=== PATIENT | male | born 1985 ===

== ENCOUNTER 2016-05-27 12:20 | Inpatient (IN) | payer OTHER ==
[~2016-05-27] VITALS: Ht 172.7 cm; Wt 87.9 kg
[2016-05-27] MEDS ORDERED: MOM 30ML SUSPENSION UDC PO PRN (13:00)
[2016-05-27] MEDS ORDERED: METHOCARBAMOL 750 MG TAB PO PRN (13:00)
[2016-05-27] MEDS ORDERED: MIRALAX *UNIT DOSE* 17GM PACKET PO PRN (13:00)
[2016-05-27] MEDS ORDERED: ACETAMINOPHEN TAB 650MG DOSE (2X325MG) PO PRN (13:00)
[2016-05-27] MEDS ORDERED: GLUCAGON FOR INJ 1 MG VIAL (J1610) SC PRN (13:15)
[2016-05-27] MEDS ORDERED: DEXTROSE 50% 50 ML SYRINGE IV PRN (13:15)
[2016-05-27] MEDS ORDERED: GLUCOSE 4 GM CHEW TABLET PO PRN (13:15)
[2016-05-27 18:30] VITALS: BP 152/92
[2016-05-27] MEDS ORDERED: CEFT1INJ3 INJ (19:17)
[2016-05-27] MEDS ORDERED: LOVE1INJ2 SC (19:22)
[2016-05-27] MEDS ORDERED: INSUH10VL SC (19:22)
[2016-05-27] MEDS ORDERED: GABA300C3 PO (19:22)
[2016-05-27] MEDS ORDERED: VITA100066 PO (19:22)
[2016-05-27] MEDS ORDERED: COLA100C PO (19:22)
[2016-05-27] MEDS ORDERED: KEPP1000 PO (19:33)
[2016-05-27] MEDS ORDERED: OXYC10TA12 PO (19:33)
[2016-05-27] MEDS ORDERED: SENN1TAB4 PO (19:33)
[2016-05-27] MEDS ORDERED: METO10TA2 PO (19:33)
[2016-05-27] MEDS ORDERED: MELA3TAB PO (19:33)
[2016-05-27] MEDS ORDERED: ROBA750T4 PO (19:33)
[2016-05-27] MEDS ORDERED: TYLE500T78 PO (19:33)
[2016-05-27] MEDS ORDERED: MIRA33504 PO (19:33)
[2016-05-27] MEDS ORDERED: OXYC-517 PO (19:33)
[2016-05-27] MEDS ORDERED: VITMTA PO (19:33)
[2016-05-27] MEDS ORDERED: TRAM50TA2 PO (19:33)
[2016-05-27] MEDS ORDERED: PANT40TA2 PO (19:33)
[2016-05-27] MEDS ORDERED: METF500T PO (19:33)
[2016-05-27 20:00] VITALS: BP 152/92
[2016-05-27] MEDS: metFORMIN (GLUCOPHAGE) 500 MG TAB PO SCH (20:03)
[2016-05-27] MEDS: PERCOCET 5MG/325MG TAB PO PRN (20:03)
[2016-05-27] MEDS: DOCUSATE SODIUM 100 MG CAP PO SCH (21:00)
[2016-05-27] MEDS: SENNA 8.6 MG TAB (SENOKOT) PO SCH (21:00)
[2016-05-27] MEDS: HumaLOG INSULIN (NovoLOG) PER UNIT SC SCH (21:00)
[2016-05-27] MEDS: ENOXAPARIN 30 MG/0.3 ML SYR (J1650) SC SCH (22:11)
[2016-05-27] MEDS: VITAMIN D 1,000 INTERNATIONAL UNITS TABLET PO SCH (22:13)
[2016-05-27] MEDS: GABAPENTIN 300 MG CAP PO SCH (22:13)
[2016-05-27] MEDS: levETIRAcetam 250MG TABLET (KEPPRA) PO SCH (22:14)
[2016-05-27] MEDS: METOCLOPRAMIDE 10 MG TAB PO SCH (22:14)
[2016-05-28] MEDS: PERCOCET 5MG/325MG TAB PO PRN ×4 (03:44→21:31)
[2016-05-28 06:00] VITALS: BP 147/86
[2016-05-28] MEDS: DOCUSATE SODIUM 100 MG CAP PO SCH ×2 (08:06→21:10)
[2016-05-28] MEDS: LACTOBACILLUS ACIDOPHILUS CAP (BACID) PO SCH ×3 (08:19→21:11)
[2016-05-28] MEDS: METOCLOPRAMIDE 10 MG TAB PO SCH ×4 (08:20→21:11)
[2016-05-28] MEDS: levETIRAcetam 250MG TABLET (KEPPRA) PO SCH ×2 (08:20→21:10)
[2016-05-28] MEDS: MULTIVITAMINS/MINERALS THERAP 1 TAB PO SCH (08:20)
[2016-05-28] MEDS: PANTOPRAZOLE 40MG TAB (PROTONIX) PO SCH (08:20)
[2016-05-28] MEDS: GABAPENTIN 300 MG CAP PO SCH ×3 (08:20→21:11)
[2016-05-28] MEDS: metFORMIN (GLUCOPHAGE) 500 MG TAB PO SCH ×2 (08:20→17:19)
[2016-05-28] MEDS: VITAMIN D 1,000 INTERNATIONAL UNITS TABLET PO SCH ×2 (08:20→21:10)
[2016-05-28] MEDS: ENOXAPARIN 30 MG/0.3 ML SYR (J1650) SC SCH ×2 (08:21→21:12)
[2016-05-28 08:26] LABS: BASO % 0.2 % (0.0-1.0); EOS # 0.1 K/mm3 (0.0-0.50); EOS % 0.6 % (0.0-3.0); LARGE UNSTAINED CELL # 0.2 K/mm3 (0.0-0.4); LARGE UNSTAINED CELL % 1.2 % (0.0-4.0); LYMPH # 1.6 K/mm3 (1.5-4.5); LYMPH % 10.4 % (24.0-44.0); MEAN CORPUSCULAR HEMOGLOBIN 29.2 pg (27.0-33.0); MEAN CORPUSCULAR HGB CONC 31.3 g/dl (32.0-36.5); MEAN CORPUSCULAR VOLUME 93.1 fl (80.0-96.0); MONO # 0.6 K/mm3 (0.0-0.8); MONO % 4.1 % (0.0-5.0); NEUTROPHILS # 12.9 K/mm3 (1.8-7.7); NEUTROPHILS % 83.5 % (36.0-66.0); PLATELET COUNT, AUTOMATED 582 k/mm3 (150-450); RED CELL DISTRIBUTION WIDTH 15.6 % (11.5-14.5); WHITE BLOOD COUNT 15.4 K/mm3 (4.0-10.0)
[2016-05-28 08:30] LABS: ANION GAP 9 MEQ/L (8-16); BLOOD UREA NITROGEN 7 MG/DL (7-18); CALCIUM LEVEL 8.7 MG/DL (8.5-10.1); CARBON DIOXIDE LEVEL 29 MEQ/L (21-32); CHLORIDE LEVEL 101 MEQ/L (98-107); CREATININE FOR GFR 0.55 MG/DL (0.70-1.30); GLOMERULAR FILTRATION RATE > 60.0 (>60); GLUCOSE, FASTING 135 MG/DL (70-105); POTASSIUM SERUM 4.1 MEQ/L (3.5-5.1); SODIUM LEVEL 139 MEQ/L (136-145)
[2016-05-28] MEDS: HumaLOG INSULIN (NovoLOG) PER UNIT SC SCH ×4 (09:07→21:00)
[2016-05-28] MEDS: cefTRIAXone SOD 2 GM in D5W MINI-BAG PLUS 50 ML IV SCH ×2 (09:07→21:09)
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
--- NOTE | 2016-05-28 13:02 | REP ---
CHEST PA AND LATERAL: 05/28/2016. Clinical history: Leukocytosis, decreased breath sounds left lung. Findings: No prior study. Two-views, a frontal and a lateral projection, show low level of inflation despite repeat PA chest. In fact, the inflation level was better with the first attempt. There is no gross effusion and with bilateral patchy basilar atelectasis or infiltrate, left more than right noted. Heart not grossly enlarged. There is no vascular redistribution or edema. The aorta is normal for age. Airway intact. Bones grossly intact. No free air. Impression: 1. Somewhat hypoinflated chest with some basilar atelectatic or infiltrative changes both lower lung zones. No gross effusion or dense consolidation with air bronchograms. 2. The heart size not enlarged and no vascular redistribution or edema. Signed by Pramod Douglas MD 05/28/2016 06:39 P
[2016-05-28 14:15] VITALS: BP 158/98
[2016-05-28] MEDS: traMADol 50 MG TAB PO PRN (14:15)
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
[2016-05-28 20:00] VITALS: BP 141/93
[2016-05-28] MEDS: SENNA 8.6 MG TAB (SENOKOT) PO SCH (21:00)
[2016-05-29] MEDS: PERCOCET 5MG/325MG TAB PO PRN ×4 (03:12→21:52)
[2016-05-29 06:00] VITALS: BP 148/100
[2016-05-29 07:37] LABS: BASO % 0.2 % (0.0-1.0); EOS # 0.1 K/mm3 (0.0-0.50); EOS % 0.4 % (0.0-3.0); LARGE UNSTAINED CELL # 0.2 K/mm3 (0.0-0.4); LARGE UNSTAINED CELL % 1.6 % (0.0-4.0); LYMPH # 2.3 K/mm3 (1.5-4.5); LYMPH % 14.6 % (24.0-44.0); MEAN CORPUSCULAR HEMOGLOBIN 29.5 pg (27.0-33.0); MEAN CORPUSCULAR HGB CONC 31.1 g/dl (32.0-36.5); MONO # 0.6 K/mm3 (0.0-0.8); MONO % 4.5 % (0.0-5.0); NEUTROPHILS # 11.1 K/mm3 (1.8-7.7); NEUTROPHILS % 78.6 % (36.0-66.0); PLATELET COUNT, AUTOMATED 606 k/mm3 (150-450); RED CELL DISTRIBUTION WIDTH 15.8 % (11.5-14.5); WHITE BLOOD COUNT 14.1 K/mm3 (4.0-10.0)
[2016-05-29 07:58] LABS: ANION GAP 9 MEQ/L (8-16); BLOOD UREA NITROGEN 7 MG/DL (7-18); CALCIUM LEVEL 8.5 MG/DL (8.5-10.1); CARBON DIOXIDE LEVEL 31 MEQ/L (21-32); CHLORIDE LEVEL 98 MEQ/L (98-107); CREATININE FOR GFR 0.68 MG/DL (0.70-1.30); GLOMERULAR FILTRATION RATE > 60.0 (>60); GLUCOSE, FASTING 161 MG/DL (70-105); POTASSIUM SERUM 3.7 MEQ/L (3.5-5.1); SODIUM LEVEL 138 MEQ/L (136-145)
[2016-05-29 08:42] LABS: ERYTHROCYTE SEDIMENTATION RATE 80 mm/hr (0-15)
[2016-05-29] MEDS: cefTRIAXone SOD 2 GM in D5W MINI-BAG PLUS 50 ML IV SCH ×2 (09:21→20:21)
[2016-05-29] MEDS: levETIRAcetam 250MG TABLET (KEPPRA) PO SCH ×2 (09:21→20:20)
[2016-05-29] MEDS: DOCUSATE SODIUM 100 MG CAP PO SCH ×2 (09:21→20:21)
[2016-05-29] MEDS: PANTOPRAZOLE 40MG TAB (PROTONIX) PO SCH (09:21)
[2016-05-29] MEDS: metFORMIN (GLUCOPHAGE) 500 MG TAB PO SCH ×2 (09:21→16:58)
[2016-05-29] MEDS: METOCLOPRAMIDE 10 MG TAB PO SCH ×4 (09:21→20:20)
[2016-05-29] MEDS: LACTOBACILLUS ACIDOPHILUS CAP (BACID) PO SCH ×3 (09:21→20:20)
[2016-05-29] MEDS: VITAMIN D 1,000 INTERNATIONAL UNITS TABLET PO SCH ×2 (09:21→21:00)
[2016-05-29] MEDS: MULTIVITAMINS/MINERALS THERAP 1 TAB PO SCH (09:21)
[2016-05-29] MEDS: ENOXAPARIN 30 MG/0.3 ML SYR (J1650) SC SCH ×2 (09:21→20:19)
[2016-05-29] MEDS: GABAPENTIN 300 MG CAP PO SCH ×3 (09:21→20:20)
[2016-05-29] MEDS: HumaLOG INSULIN (NovoLOG) PER UNIT SC SCH ×4 (09:23→21:00)
[2016-05-29] MEDS ORDERED: GASTROGRAFIN SOLUTION 30ML PO ONE (10:00)
[2016-05-29] MEDS ORDERED: GASTROGRAFIN SOLUTION 30ML (Q9963) PO ONE (10:30)
[2016-05-29] MEDS ORDERED: ISOVUE-370 76% 100ML VIAL (Q9967) As Ordered ONE (10:48)
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
[2016-05-29 14:00] VITALS: BP 142/87
[2016-05-29] MEDS: traMADol 50 MG TAB PO PRN (14:38)
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
[2016-05-29 20:00] VITALS: BP 139/90
[2016-05-29] MEDS: SENNA 8.6 MG TAB (SENOKOT) PO SCH (20:22)
[2016-05-30 06:00] VITALS: BP 138/91
[2016-05-30 07:45] LABS: BASO % 0.3 % (0.0-1.0); EOS % 0.4 % (0.0-3.0); LARGE UNSTAINED CELL # 0.2 K/mm3 (0.0-0.4); LARGE UNSTAINED CELL % 1.3 % (0.0-4.0); LYMPH # 1.7 K/mm3 (1.5-4.5); LYMPH % 13.9 % (24.0-44.0); MEAN CORPUSCULAR HGB CONC 31.7 g/dl (32.0-36.5); MEAN CORPUSCULAR VOLUME 94.5 fl (80.0-96.0); MONO # 0.5 K/mm3 (0.0-0.8); MONO % 4.8 % (0.0-5.0); NEUTROPHILS # 8.8 K/mm3 (1.8-7.7); NEUTROPHILS % 79.3 % (36.0-66.0); PLATELET COUNT, AUTOMATED 607 k/mm3 (150-450); RED CELL DISTRIBUTION WIDTH 15.9 % (11.5-14.5); WHITE BLOOD COUNT 11.1 K/mm3 (4.0-10.0)
[2016-05-30 07:51] LABS: ANION GAP 9 MEQ/L (8-16); BLOOD UREA NITROGEN 7 MG/DL (7-18); CALCIUM LEVEL 8.4 MG/DL (8.5-10.1); CARBON DIOXIDE LEVEL 31 MEQ/L (21-32); CHLORIDE LEVEL 100 MEQ/L (98-107); CREATININE FOR GFR 0.52 MG/DL (0.70-1.30); GLOMERULAR FILTRATION RATE > 60.0 (>60); GLUCOSE, FASTING 134 MG/DL (70-105); POTASSIUM SERUM 3.7 MEQ/L (3.5-5.1); SODIUM LEVEL 140 MEQ/L (136-145)
[2016-05-30] MEDS: ENOXAPARIN 30 MG/0.3 ML SYR (J1650) SC SCH ×2 (08:41→20:06)
[2016-05-30] MEDS: LACTOBACILLUS ACIDOPHILUS CAP (BACID) PO SCH ×3 (08:41→20:07)
[2016-05-30] MEDS: levETIRAcetam 250MG TABLET (KEPPRA) PO SCH ×2 (08:42→20:07)
[2016-05-30] MEDS: PANTOPRAZOLE 40MG TAB (PROTONIX) PO SCH (08:42)
[2016-05-30] MEDS: VITAMIN D 1,000 INTERNATIONAL UNITS TABLET PO SCH ×2 (08:43→20:06)
[2016-05-30] MEDS: DOCUSATE SODIUM 100 MG CAP PO SCH ×3 (08:43→20:06)
[2016-05-30] MEDS: METOCLOPRAMIDE 10 MG TAB PO SCH ×4 (08:43→20:06)
[2016-05-30] MEDS: GABAPENTIN 300 MG CAP PO SCH ×3 (08:44→20:07)
[2016-05-30] MEDS: MULTIVITAMINS/MINERALS THERAP 1 TAB PO SCH (08:44)
[2016-05-30] MEDS: metFORMIN (GLUCOPHAGE) 500 MG TAB PO SCH ×2 (08:44→18:29)
[2016-05-30] MEDS: HumaLOG INSULIN (NovoLOG) PER UNIT SC SCH ×4 (08:45→20:25)
[2016-05-30] MEDS: cefTRIAXone SOD 2 GM in D5W MINI-BAG PLUS 50 ML IV SCH ×2 (08:46→20:06)
[2016-05-30 09:08] LABS: ERYTHROCYTE SEDIMENTATION RATE 70 mm/hr (0-15)
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
[2016-05-30] MEDS: PERCOCET 5MG/325MG TAB PO PRN ×2 (09:30→20:45)
[2016-05-30 14:00] VITALS: BP 160/92
[2016-05-30 15:21] VITALS: BP 144/92
[2016-05-30 20:00] VITALS: BP 154/86
[2016-05-30] MEDS: SENNA 8.6 MG TAB (SENOKOT) PO SCH (20:06)
[2016-05-31 06:00] VITALS: BP 152/94
[2016-05-31 07:04] LABS: BASO % 0.2 % (0.0-1.0); EOS # 0.1 K/mm3 (0.0-0.50); EOS % 0.7 % (0.0-3.0); LARGE UNSTAINED CELL # 0.2 K/mm3 (0.0-0.4); LARGE UNSTAINED CELL % 1.7 % (0.0-4.0); LYMPH # 1.6 K/mm3 (1.5-4.5); LYMPH % 15.4 % (24.0-44.0); MEAN CORPUSCULAR HEMOGLOBIN 29.8 pg (27.0-33.0); MEAN CORPUSCULAR HGB CONC 31.7 g/dl (32.0-36.5); MONO # 0.5 K/mm3 (0.0-0.8); MONO % 5.2 % (0.0-5.0); NEUTROPHILS % 76.8 % (36.0-66.0); PLATELET COUNT, AUTOMATED 658 k/mm3 (150-450); RED CELL DISTRIBUTION WIDTH 15.8 % (11.5-14.5); WHITE BLOOD COUNT 9.1 K/mm3 (4.0-10.0)
[2016-05-31 07:18] LABS: ANION GAP 11 MEQ/L (8-16); BLOOD UREA NITROGEN 5 MG/DL (7-18); CALCIUM LEVEL 8.6 MG/DL (8.5-10.1); CARBON DIOXIDE LEVEL 28 MEQ/L (21-32); CHLORIDE LEVEL 102 MEQ/L (98-107); CREATININE FOR GFR 0.49 MG/DL (0.70-1.30); GLOMERULAR FILTRATION RATE > 60.0 (>60); GLUCOSE, FASTING 136 MG/DL (70-105); POTASSIUM SERUM 4.2 MEQ/L (3.5-5.1); SODIUM LEVEL 141 MEQ/L (136-145)
[2016-05-31 07:53] LABS: ERYTHROCYTE SEDIMENTATION RATE 66 mm/hr (0-15)
[2016-05-31] MEDS: cefTRIAXone SOD 2 GM in D5W MINI-BAG PLUS 50 ML IV SCH ×2 (08:19→21:14)
[2016-05-31] MEDS: HumaLOG INSULIN (NovoLOG) PER UNIT SC SCH ×4 (08:20→21:00)
[2016-05-31] MEDS: MULTIVITAMINS/MINERALS THERAP 1 TAB PO SCH (08:20)
[2016-05-31] MEDS: metFORMIN (GLUCOPHAGE) 500 MG TAB PO SCH ×2 (08:20→17:15)
[2016-05-31] MEDS: ENOXAPARIN 30 MG/0.3 ML SYR (J1650) SC SCH ×2 (08:20→21:13)
[2016-05-31] MEDS: METOCLOPRAMIDE 10 MG TAB PO SCH ×4 (08:20→21:12)
[2016-05-31] MEDS: LACTOBACILLUS ACIDOPHILUS CAP (BACID) PO SCH ×3 (08:21→21:13)
[2016-05-31] MEDS: VITAMIN D 1,000 INTERNATIONAL UNITS TABLET PO SCH ×2 (08:21→21:13)
[2016-05-31] MEDS: PANTOPRAZOLE 40MG TAB (PROTONIX) PO SCH (08:21)
[2016-05-31] MEDS: GABAPENTIN 300 MG CAP PO SCH ×3 (08:21→21:13)
[2016-05-31] MEDS: levETIRAcetam 250MG TABLET (KEPPRA) PO SCH ×2 (08:22→21:13)
[2016-05-31] MEDS: DOCUSATE SODIUM 100 MG CAP PO SCH ×2 (08:22→21:12)
[2016-05-31 14:00] VITALS: BP 140/84
[2016-05-31] MEDS: PERCOCET 5MG/325MG TAB PO PRN ×2 (15:44→21:19)
[2016-05-31 20:00] VITALS: BP 147/93
[2016-05-31] MEDS: SENNA 8.6 MG TAB (SENOKOT) PO SCH (21:00)
[2016-06-01 06:00] VITALS: BP 139/90
[2016-06-01 07:14] LABS: BASO % 0.4 % (0.0-1.0); EOS # 0.1 K/mm3 (0.0-0.50); EOS % 0.7 % (0.0-3.0); LARGE UNSTAINED CELL # 0.1 K/mm3 (0.0-0.4); LARGE UNSTAINED CELL % 1.5 % (0.0-4.0); LYMPH # 1.4 K/mm3 (1.5-4.5); LYMPH % 14.8 % (24.0-44.0); MEAN CORPUSCULAR HEMOGLOBIN 29.6 pg (27.0-33.0); MEAN CORPUSCULAR VOLUME 95.4 fl (80.0-96.0); MONO # 0.5 K/mm3 (0.0-0.8); MONO % 5.2 % (0.0-5.0); NEUTROPHILS # 6.8 K/mm3 (1.8-7.7); NEUTROPHILS % 77.4 % (36.0-66.0); PLATELET COUNT, AUTOMATED 749 k/mm3 (150-450); RED CELL DISTRIBUTION WIDTH 15.9 % (11.5-14.5); WHITE BLOOD COUNT 8.8 K/mm3 (4.0-10.0)
[2016-06-01 07:35] LABS: ANION GAP 7 MEQ/L (8-16); BLOOD UREA NITROGEN 4 MG/DL (7-18); CALCIUM LEVEL 8.6 MG/DL (8.5-10.1); CARBON DIOXIDE LEVEL 31 MEQ/L (21-32); CHLORIDE LEVEL 102 MEQ/L (98-107); CREATININE FOR GFR 0.49 MG/DL (0.70-1.30); GLOMERULAR FILTRATION RATE > 60.0 (>60); GLUCOSE, FASTING 141 MG/DL (70-105); POTASSIUM SERUM 3.8 MEQ/L (3.5-5.1); SODIUM LEVEL 140 MEQ/L (136-145)
[2016-06-01 07:55] LABS: ERYTHROCYTE SEDIMENTATION RATE 66 mm/hr (0-15)
[2016-06-01] MEDS: cefTRIAXone SOD 2 GM in D5W MINI-BAG PLUS 50 ML IV SCH ×2 (08:23→19:37)
[2016-06-01] MEDS: metFORMIN (GLUCOPHAGE) 500 MG TAB PO SCH ×2 (08:23→17:01)
[2016-06-01] MEDS: GABAPENTIN 300 MG CAP PO SCH ×3 (08:23→20:20)
[2016-06-01] MEDS: levETIRAcetam 250MG TABLET (KEPPRA) PO SCH ×2 (08:23→20:20)
[2016-06-01] MEDS: HumaLOG INSULIN (NovoLOG) PER UNIT SC SCH ×4 (08:23→21:00)
[2016-06-01] MEDS: PANTOPRAZOLE 40MG TAB (PROTONIX) PO SCH (08:23)
[2016-06-01] MEDS: MULTIVITAMINS/MINERALS THERAP 1 TAB PO SCH (08:23)
[2016-06-01] MEDS: ENOXAPARIN 30 MG/0.3 ML SYR (J1650) SC SCH ×2 (08:24→20:21)
[2016-06-01] MEDS: VITAMIN D 1,000 INTERNATIONAL UNITS TABLET PO SCH ×2 (08:24→20:21)
[2016-06-01] MEDS: LACTOBACILLUS ACIDOPHILUS CAP (BACID) PO SCH ×3 (08:24→20:20)
[2016-06-01] MEDS: METOCLOPRAMIDE 10 MG TAB PO SCH ×4 (08:24→20:21)
[2016-06-01] MEDS: DOCUSATE SODIUM 100 MG CAP PO SCH ×2 (08:24→20:21)
[2016-06-01 14:00] VITALS: BP 136/88
[2016-06-01 20:00] VITALS: BP 133/79
[2016-06-01] MEDS: PERCOCET 5MG/325MG TAB PO PRN (20:26)
[2016-06-01] MEDS: SENNA 8.6 MG TAB (SENOKOT) PO SCH (21:00)
[2016-06-02 06:00] VITALS: BP 138/86
[2016-06-02 07:08] LABS: BASO % 0.2 % (0.0-1.0); EOS # 0.1 K/mm3 (0.0-0.50); EOS % 0.6 % (0.0-3.0); LARGE UNSTAINED CELL # 0.2 K/mm3 (0.0-0.4); LARGE UNSTAINED CELL % 1.5 % (0.0-4.0); LYMPH # 1.5 K/mm3 (1.5-4.5); LYMPH % 14.3 % (24.0-44.0); MEAN CORPUSCULAR HEMOGLOBIN 30.1 pg (27.0-33.0); MEAN CORPUSCULAR HGB CONC 31.9 g/dl (32.0-36.5); MEAN CORPUSCULAR VOLUME 94.5 fl (80.0-96.0); MONO # 0.6 K/mm3 (0.0-0.8); MONO % 6.2 % (0.0-5.0); NEUTROPHILS # 7.6 K/mm3 (1.8-7.7); NEUTROPHILS % 77.2 % (36.0-66.0); PLATELET COUNT, AUTOMATED 781 k/mm3 (150-450); RED CELL DISTRIBUTION WIDTH 15.7 % (11.5-14.5); WHITE BLOOD COUNT 9.8 K/mm3 (4.0-10.0)
[2016-06-02 07:13] LABS: ANION GAP 8 MEQ/L (8-16); BLOOD UREA NITROGEN 5 MG/DL (7-18); CALCIUM LEVEL 8.5 MG/DL (8.5-10.1); CARBON DIOXIDE LEVEL 28 MEQ/L (21-32); CHLORIDE LEVEL 102 MEQ/L (98-107); GLOMERULAR FILTRATION RATE > 60.0 (>60); GLUCOSE, FASTING 135 MG/DL (70-105); POTASSIUM SERUM 4.3 MEQ/L (3.5-5.1); SODIUM LEVEL 138 MEQ/L (136-145)
[2016-06-02] MEDS: METOCLOPRAMIDE 10 MG TAB PO SCH ×4 (07:49→21:45)
[2016-06-02] MEDS: HumaLOG INSULIN (NovoLOG) PER UNIT SC SCH ×4 (07:50→21:00)
[2016-06-02 08:46] LABS: ERYTHROCYTE SEDIMENTATION RATE 65 mm/hr (0-15)
[2016-06-02] MEDS: VITAMIN D 1,000 INTERNATIONAL UNITS TABLET PO SCH ×2 (09:03→21:46)
[2016-06-02] MEDS: metFORMIN (GLUCOPHAGE) 500 MG TAB PO SCH (09:03)
[2016-06-02] MEDS: ENOXAPARIN 30 MG/0.3 ML SYR (J1650) SC SCH ×2 (09:03→21:45)
[2016-06-02] MEDS: levETIRAcetam 250MG TABLET (KEPPRA) PO SCH ×2 (09:03→21:45)
[2016-06-02] MEDS: LACTOBACILLUS ACIDOPHILUS CAP (BACID) PO SCH ×3 (09:03→21:45)
[2016-06-02] MEDS: PANTOPRAZOLE 40MG TAB (PROTONIX) PO SCH (09:04)
[2016-06-02] MEDS: MULTIVITAMINS/MINERALS THERAP 1 TAB PO SCH (09:04)
[2016-06-02] MEDS: DOCUSATE SODIUM 100 MG CAP PO SCH ×2 (09:04→21:45)
[2016-06-02] MEDS: GABAPENTIN 300 MG CAP PO SCH ×3 (09:04→21:46)
[2016-06-02] MEDS: cefTRIAXone SOD 2 GM in D5W MINI-BAG PLUS 50 ML IV SCH ×2 (09:05→21:47)
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
[2016-06-02] MEDS: metFORMIN 850 MG TAB PO SCH (17:54)
[2016-06-02 20:00] VITALS: BP 135/79
[2016-06-02] MEDS: SENNA 8.6 MG TAB (SENOKOT) PO SCH (21:46)
[2016-06-03 06:00] VITALS: BP 157/91
[2016-06-03 07:10] LABS: BASO % 0.4 % (0.0-1.0); EOS % 0.4 % (0.0-3.0); LARGE UNSTAINED CELL # 0.3 K/mm3 (0.0-0.4); LARGE UNSTAINED CELL % 2.4 % (0.0-4.0); LYMPH # 1.9 K/mm3 (1.5-4.5); LYMPH % 13.7 % (24.0-44.0); MEAN CORPUSCULAR HEMOGLOBIN 29.3 pg (27.0-33.0); MEAN CORPUSCULAR HGB CONC 31.1 g/dl (32.0-36.5); MEAN CORPUSCULAR VOLUME 94.4 fl (80.0-96.0); MONO # 0.8 K/mm3 (0.0-0.8); MONO % 6.4 % (0.0-5.0); NEUTROPHILS % 76.7 % (36.0-66.0); PLATELET COUNT, AUTOMATED 760 k/mm3 (150-450); RED CELL DISTRIBUTION WIDTH 15.7 % (11.5-14.5); WHITE BLOOD COUNT 11.8 K/mm3 (4.0-10.0)
[2016-06-03 07:15] LABS: ANION GAP 9 MEQ/L (8-16); BLOOD UREA NITROGEN 5 MG/DL (7-18); CALCIUM LEVEL 8.6 MG/DL (8.5-10.1); CARBON DIOXIDE LEVEL 29 MEQ/L (21-32); CHLORIDE LEVEL 102 MEQ/L (98-107); CREATININE FOR GFR 0.54 MG/DL (0.70-1.30); GLOMERULAR FILTRATION RATE > 60.0 (>60); GLUCOSE, FASTING 142 MG/DL (70-105); POTASSIUM SERUM 3.8 MEQ/L (3.5-5.1); SODIUM LEVEL 140 MEQ/L (136-145)
[2016-06-03 08:00] VITALS: BP 140/90
[2016-06-03 08:06] LABS: ERYTHROCYTE SEDIMENTATION RATE 86 mm/hr (0-15)
[2016-06-03] MEDS: ENOXAPARIN 30 MG/0.3 ML SYR (J1650) SC SCH ×2 (08:50→20:29)
[2016-06-03] MEDS: METOCLOPRAMIDE 10 MG TAB PO SCH ×4 (08:51→20:29)
[2016-06-03] MEDS: HumaLOG INSULIN (NovoLOG) PER UNIT SC SCH ×2 (08:51→12:23)
[2016-06-03] MEDS: levETIRAcetam 250MG TABLET (KEPPRA) PO SCH ×2 (08:51→20:28)
[2016-06-03] MEDS: LACTOBACILLUS ACIDOPHILUS CAP (BACID) PO SCH ×3 (08:52→20:29)
[2016-06-03] MEDS: PANTOPRAZOLE 40MG TAB (PROTONIX) PO SCH (08:52)
[2016-06-03] MEDS: VITAMIN D 1,000 INTERNATIONAL UNITS TABLET PO SCH ×2 (08:52→20:29)
[2016-06-03] MEDS: GABAPENTIN 300 MG CAP PO SCH ×3 (08:53→20:29)
[2016-06-03] MEDS: MULTIVITAMINS/MINERALS THERAP 1 TAB PO SCH (08:53)
[2016-06-03] MEDS: metFORMIN 850 MG TAB PO SCH ×2 (08:53→17:28)
[2016-06-03] MEDS: cefTRIAXone SOD 2 GM in D5W MINI-BAG PLUS 50 ML IV SCH ×2 (08:54→20:28)
[2016-06-03] MEDS: DOCUSATE SODIUM 100 MG CAP PO SCH ×2 (09:00→20:29)
[2016-06-03] MEDS ORDERED: METO10TA2 PO (10:56)
[2016-06-03] MEDS ORDERED: COLA100C PO (10:56)
[2016-06-03] MEDS ORDERED: ROBA750T4 PO (10:56)
[2016-06-03] MEDS ORDERED: PERCOCET PO (10:56)
[2016-06-03] MEDS ORDERED: LOVE1INJ2 SC (10:56)
[2016-06-03] MEDS ORDERED: GABA300C3 PO (10:56)
[2016-06-03] MEDS ORDERED: PANT40TA2 PO (10:56)
[2016-06-03] MEDS ORDERED: RISATAB3 PO (10:56)
[2016-06-03] MEDS ORDERED: KEPP1000 PO (10:56)
[2016-06-03] MEDS ORDERED: METF850T PO (10:56)
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
[2016-06-03 14:00] VITALS: BP 145/98
[2016-06-03] MEDS: SENNA 8.6 MG TAB (SENOKOT) PO SCH (20:29)
[2016-06-04 06:00] VITALS: BP 155/90
[2016-06-04] MEDS: metFORMIN 850 MG TAB PO SCH (07:36)
[2016-06-04] MEDS: METOCLOPRAMIDE 10 MG TAB PO SCH (07:37)
[2016-06-04] MEDS: cefTRIAXone SOD 2 GM in D5W MINI-BAG PLUS 50 ML IV SCH (07:37)
[2016-06-04 08:36] LABS: BASO % 0.3 % (0.0-1.0); EOS % 0.5 % (0.0-3.0); LARGE UNSTAINED CELL # 0.2 K/mm3 (0.0-0.4); LARGE UNSTAINED CELL % 2.1 % (0.0-4.0); LYMPH # 1.4 K/mm3 (1.5-4.5); LYMPH % 12.3 % (24.0-44.0); MEAN CORPUSCULAR HEMOGLOBIN 29.4 pg (27.0-33.0); MEAN CORPUSCULAR HGB CONC 30.7 g/dl (32.0-36.5); MEAN CORPUSCULAR VOLUME 95.8 fl (80.0-96.0); MONO # 0.7 K/mm3 (0.0-0.8); MONO % 6.9 % (0.0-5.0); NEUTROPHILS # 7.4 K/mm3 (1.8-7.7); NEUTROPHILS % 77.8 % (36.0-66.0); PLATELET COUNT, AUTOMATED 848 k/mm3 (150-450); RED CELL DISTRIBUTION WIDTH 15.4 % (11.5-14.5); WHITE BLOOD COUNT 9.5 K/mm3 (4.0-10.0)
[2016-06-04 08:53] LABS: ANION GAP 7 MEQ/L (8-16); BLOOD UREA NITROGEN 5 MG/DL (7-18); CALCIUM LEVEL 9.1 MG/DL (8.5-10.1); CARBON DIOXIDE LEVEL 30 MEQ/L (21-32); CHLORIDE LEVEL 100 MEQ/L (98-107); CREATININE FOR GFR 0.54 MG/DL (0.70-1.30); GLOMERULAR FILTRATION RATE > 60.0 (>60); GLUCOSE, FASTING 171 MG/DL (70-105); POTASSIUM SERUM 4.7 MEQ/L (3.5-5.1); SODIUM LEVEL 137 MEQ/L (136-145)
[2016-06-04] MEDS: DOCUSATE SODIUM 100 MG CAP PO SCH (09:00)
[2016-06-04] MEDS ORDERED: CEFD1CAP8 PO (09:20)
[2016-06-04 09:41] LABS: ERYTHROCYTE SEDIMENTATION RATE 67 mm/hr (0-15)
[2016-06-04] MEDS: LACTOBACILLUS ACIDOPHILUS CAP (BACID) PO SCH (09:49)
[2016-06-04] MEDS: ENOXAPARIN 30 MG/0.3 ML SYR (J1650) SC SCH (09:49)
[2016-06-04] MEDS: levETIRAcetam 250MG TABLET (KEPPRA) PO SCH (09:49)
[2016-06-04] MEDS: VITAMIN D 1,000 INTERNATIONAL UNITS TABLET PO SCH (09:50)
[2016-06-04] MEDS: GABAPENTIN 300 MG CAP PO SCH (09:50)
[2016-06-04] MEDS: PANTOPRAZOLE 40MG TAB (PROTONIX) PO SCH (09:50)
[2016-06-04] MEDS: MULTIVITAMINS/MINERALS THERAP 1 TAB PO SCH (09:50)
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
== END 2016-06-04 12:15 | disposition home health service (06) | DRG 949 ==
LOC: M PM&R 17:47
PROVIDERS: ADMIT Physical Medicine & Rehabilitation; ATTEND Physical Medicine & Rehabilitation
DX: S06.339D Contusion and laceration of cerebrum, unspecified, with loss of consciousness of unspecified duration, subsequent encounter (principal); N39.0 Urinary tract infection, site not specified; G82.22 Paraplegia, incomplete; R78.81 Bacteremia; S32.9XXD Fracture of unspecified parts of lumbosacral spine and pelvis, subsequent encounter for fracture with routine healing; S32.402D Unspecified fracture of left acetabulum, subsequent encounter for fracture with routine healing; S22.42XD Multiple fractures of ribs, left side, subsequent encounter for fracture with routine healing; S82.401D Unspecified fracture of shaft of right fibula, subsequent encounter for closed fracture with routine healing; S82.899D Other fracture of unspecified lower leg, subsequent encounter for closed fracture with routine healing; G40.909 Epilepsy, unspecified, not intractable, without status epilepticus; D72.829 Elevated white blood cell count, unspecified; R41.3 Other amnesia; F17.220 Nicotine dependence, chewing tobacco, uncomplicated; R00.0 Tachycardia, unspecified; B96.20 Unspecified Escherichia coli [E. coli] as the cause of diseases classified elsewhere; E11.9 Type 2 diabetes mellitus without complications; R19.7 Diarrhea, unspecified; Z87.820 Personal history of traumatic brain injury; Z79.84 Long term (current) use of oral hypoglycemic drugs; Z79.891 Long term (current) use of opiate analgesic; Z79.899 Other long term (current) drug therapy; Z83.3 Family history of diabetes mellitus; Z82.49 Family history of ischemic heart disease and other diseases of the circulatory system; Z83.6 Family history of other diseases of the respiratory system; Z83.79 Family history of other diseases of the digestive system; Z90.81 Acquired absence of spleen; V43.3 Unspecified car occupant injured in collision with car, pick-up truck or van in nontraffic accident; Y99.9 Unspecified external cause status; Y92.410 Unspecified street and highway as the place of occurrence of the external cause

== ENCOUNTER → 2016-08-19 | Outpatient (REF) ==
[~2016-08-19] MED LIST: CEFD1CAP8 PO; CEFT1INJ3 INJ; COLA100C3 PO; GABA-282 PO; INSUH10VL SC; KEPP1000 PO; LOVE1INJ2 SC; MELA3TAB PO; METF500T PO; METF850T PO; METO10TA2 PO; MIRA33504 PO; OXYC-517 PO; OXYC10TA12 PO; PANT40TA2 PO; PERCOCET PO; RISATAB3 PO; ROBA750T4 PO; SENN1TAB4 PO; TRAM50TA2 PO; TYLE500T78 PO; VITA100066 PO; VITMTA PO
--- NOTE | 2016-08-20 07:06 | REP ---
Clinical: Pain and disability. Technique: AP, lateral, bilateral oblique views of the right ankle. Findings: The patient is status post open reduction and fixation for bimalleolar fractures. Dystrophic, heterotopic areas of calcification are appreciated at the level of the fracture which are nonspecific and possibly chronic post traumatic. Less likely, infection and osteomyelitis cannot be excluded. No subcutaneous emphysema. No obvious acute fracture. Impression: Post traumatic arthritic degenerative changes along with dystrophic, heterotopic areas of calcification at the level of the fracture. While findings may reflect relatively normal chronic type changes, osteomyelitis cannot definitively be excluded and should be correlated clinically. Signed by Walt Gonzalez MD 08/20/2016 06:57 A
--- NOTE | 2016-08-20 07:11 | REP ---
Clinical: Pain and disability. Technique: AP and frog lateral views of the left hip. Comparison: None. Findings: The patient is status post orthopedic fixation for multiple pelvic and left acetabular fractures. Surrounding post traumatic arthritic degenerative changes including subchondral sclerosis to the visualized acetabulum, joint space narrowing, spurring/osteophyte formation, and surrounding heterotopic, dystrophic calcification within the soft tissues is appreciated. No subcutaneous emphysema. No acute fracture or dislocation. Impression: Change as described above are likely chronic and consistent with post traumatic arthritic degenerative changes. Much less likely differential diagnosis would include osteomyelitis and requires correlation. Signed by Walt Gonzalez MD 08/20/2016 07:03 A
== END ==
LOC: M SMT 10:46
PROVIDERS: ATTEND Internal Medicine
DX: M25.571 Pain in right ankle and joints of right foot (principal); M25.552 Pain in left hip